=== PATIENT | female | born 1980 ===

== ENCOUNTER 2025-04-14 08:27 | Outpatient (AMB) | payer OTHER, SELFPAY ==
[2025-04-14 08:40] VITALS: BMI 22.8
--- NOTE | 2025-04-14 08:40 | A.PHYSOV_ITS ---
Vital Signs 04/14/25 08:40 Height 4 ft 10 in Weight 109 lb BMI 22.8 Intake Visit Reasons: (TRANSFER PT FROM )-FOLLOW UP AFTER PHYSCIAL THE Intake Note: Patient is a 45 year old female in office today for a second opinion for neck to shoulder pain. Right siden is worse Allergies clarithromycin Allergy (Unknown, Verified 04/14/25 08:39) Unknown tramadol Allergy (Unknown, Verified 04/14/25 08:39) Unknown HPI Comments Details: History of Present Illness The patient is a 45-year-old female presenting with neck pain. The pain is primarily concentrated on the right side and has been persistent for a long time. She denies any injuries and has been taking cyclobenzaprine and meloxicam for management. The patient has previously tried gabapentin, pregabalin, amitriptyline, and duloxetine without significant relief. She received facet joint injections at [facility], which provided short-lived benefit. Physical therapy was attempted but exacerbated her symptoms, leading to cancellation of sessions. A cervical spine MRI conducted on January 28, 2023, was noncontributory. Previous MRI in 2018 showed more detailed findings. The patient reports that the pain radiates to her shoulder, causing weakness in her arm, particularly on the right side. She experiences burning sensations extending to her left elbow. 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 She recently had surgery and has been unable to perform her PHYSICIAN PRACTICE MANAGER duties, yet her symptoms persist. She had previous shoulder x-ray imaging. It was noncontributory. I was able to review images independently. She reports right shoulder pain with overhead activities. Pain has been reported in the left shoulder, however right sided pain is more predominant. Patient also reports persistent pain in her lower back radiating to the left leg. This was not addressed today. Pain Description - Onset: Long-standing neck pain primarily on the right side - Quality: Radiating pain to the shoulder with associated weakness - Location: Right side of the neck and shoulder - Radiation: Pain extends to the shoulder and causes weakness in the arm - Exacerbating factors: Physical therapy and overhead activities - Relieving factors: None of the medications tried provided significant relief Results - Imaging: Cervical spine MRI on January 28, 2023, was noncontributory - Imaging: Previous MRI in 2018 showed more detailed findings, specifics unknown [facility] Medical History (Updated 04/14/25 @ 09:54 by Rafael Siddiqui DO) Cervicobrachial syndrome Neck pain Rotator cuff impingement syndrome of right shoulder Surgical History (Updated 04/14/25 @ 08:42 by Suha Avalos MA) History of ear surgery (Unknown) Social History (Updated 04/13/25 @ 10:16 by Suha Avalos MA) Alcohol intake: current Alcohol intake frequency: does not drink Patient Tobacco Use Status: Never used Tobacco Current occupational status: employed Review of Systems Narrative Review of Systems - Musculoskeletal: Reports chronic neck pain and right shoulder pain with weakness in the right arm - Neurological: Reports burning sensation extending to the left elbow Denies change in bowel bladder habits. Denies fever or chills, denies uncontrolled depression or suicidal ideation Physical Exam Exam Exam: Physical Exam - Musculoskeletal: Tenderness noted in the cervical spine region and right shoulder. Weakness observed in the right arm with difficulty in maintaining resistance during strength testing. Harvey and Neer signs were positive in the right shoulder, negative drop-arm test. Negative shoulder apprehension test. Range of motion was preserved, however painful at the endpoint of abduction. Neurological examination of upper extremities was nonfocal. Mild tenderness with palpation over right-sided cervical facet joints. Cervical range of motion was slightly restricted and side bending. Spurling maneuver was negative. Lhermitte's sign was negative. She was able to perform heel walk and toe walk and ambulate without antalgia. Patient demonstrated no upper motor neuron signs. Vital Signs: BMI result Body Mass Index 22.8 Office Procedures AMB Shoulder Injection AMB Shoulder Injection Procedure Details: After informed consent was obtained, posterior aspect of the right shoulder was prepped with Betadine. 1.5 in 22 gauge hypodermic needle was introduced percutaneously and advanced into the subacromial area. After negative aspiratio n for blood total volume of 6 cc containing 40 mg of triamcinolone and 2% lidocaine was injected without resistance. Patient tolerated procedure very well without complications with excellent anes thetic response. Shoulder Injection - : Right All charges added?: Procedure code (CPT) selection complete Office Meds Kenalog 40 mg/mL suspension for injection Performing Provider: Rafael Siddiqui DO Performing Location: [facility] [place] [facility] Administered by: Rafael Siddiqui DO on 04/14/25 09:08 Dose Route Admin Location Dispensed Lot Number Expiration Date [facility] Rn School 40 mg intra-articular 1 mL [id number] [employer] 2 Total Dispensed Waste 1 mL 0 % lidocaine (PF) 20 mg/mL (2 %) injection solution Performing Provider: Rafael Siddiqui DO Performing Location: [facility] Administered by: Rafael Siddiqui DO on 04/14/25 09:08 Dose Route Admin Location Dispensed Lot Number Expiration Date [facility] Rn School 120 mg intra-articular 6 mL [id number] Total Dispensed Waste 6 mL 0 % Assessment & Plan Assessment & Plan (1) Rotator cuff impingement syndrome of right shoulder: Code(s): M75.41 - Impingement syndrome of right shoulder Category: Medical (2) Neck pain: Code(s): M54.2 - Cervicalgia Category: Medical (3) Cervicobrachial syndrome: Code(s): M53.1 - Cervicobrachial syndrome Category: Medical Plan Pain Management - Affect: Pain impacts daily activities and work performance - Analgesia: Currently using cyclobenzaprine and meloxicam; previous medications included gabapentin, pregabalin, amitriptyline, and duloxetine without significant relief - Adverse Effects: One medication caused hives, but the specific medication is unknown - Activities of Daily Living: Pain interferes with lifting and overhead activities - Aberrant Drug Related Behaviors: None reported Plan Patient was informed and verbally consented to the use of an ambient scribe for clinic note documentation during this visit. 1. Chronic Neck Pain The patient has been experiencing chronic neck pain primarily on the right side, with radiation to the shoulder causing weakness in the arm. Previous interventions included medications such as cyclobenzaprine and meloxicam, as well as facet joint injections, which provided short-lived relief. Physical therapy was attempted but exacerbated symptoms. A cervical spine MRI was noncontributory, and further evaluation of the shoulder is considered. The plan includes considering a shoulder MRI or injection to determine the source of pain and provide relief. 2. Right Shoulder Pain The patient reports right shoulder pain with associated weakness, impacting her ability to perform overhead activities. The shoulder has not been previously lexii ged with MRI, and an injection is planned to assess for relief. If the injection provides temporary relief, an MRI will be considered to further evaluate the shoulder. Discussion Notes We discussed the patient's chronic neck and right shoulder pain, considering the possibility of referred pain between these areas. I explained the options of either proceeding with a shoulder MRI or administering a cortisone injection to assess for relief. The patient opted for the injection to seek immediate relief, understanding that an MRI may follow if the relief is temporary. Risks and benefits of the procedure were discussed with the patient. Potential alternative measures were also discussed. Patient understands that the procedure is completely elective. Potential side effects associated with in jectable medications were discussed. All questions were answered to the patient's satisfaction. Patient Instructions - Undergo the planned cortisone injection for the right shoulder. - Monitor for relief and report any changes in symptoms. - Follow up for further evaluation if the injection provides only temporary relief. Orders: Orders AMB Shoulder Injection Today M75.41 - Impingement syndrome of right shoulder Coding Level of Care Code Est Pt Level 4 (06560) Complex EM visit Add On G2211 Diagnoses Rotator cuff impingement syndrome of right shoulder M75.41 Neck pain M54.2 Cervicobrachial syndrome M53.1 CPT Codes AMB Shoulder Injection - Hip/Bursa Injection - : Right ([id number])
--- OUTSIDE RECORDS SUMMARY | 2025-04-14 15:22 | XMS_ITS | Data Portability ---
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 The left ear has worsened more in comparison to the right ear over the past few years. The pathophysiology of otosclerosis was discussed with the patient, and the stapes brochure discussed in detail. We discussed the available options including the use of amplification as well as surgical options. We discussed laser stapedotomy with vein graft in detail, going over the surgical steps in the brochure. We discussed the 1% risk of partial or complete sensorineural hearing loss as a result of surgery, the 3-4% risk that the hearing will stay the same after surgery, but overall a 95% chance that the patient will experience a significant improvement in the hearing in the operated ear. We discussed the risks of surgery including the risk of bleeding, infection, temporary or permanent taste disturbance, temporary or long-term balance disturbance, tinnitus, or tympanic membrane perforation. We also discussed the need to harvest a small vein graft from the back of the hand to serve as a seal around the base of the prosthesis as it enters the inner ear to reduce the risk of perilymphatic fistula or sensorineural hearing loss. We discussed anesthetic options including a general anesthetic versus a local anesthetic with intravenous sedation. After full discussion, the patient would like to proceed with left sided stapes surgery under general anesthesia. I have provided patient with the contact information for my surgical dressing maker. We will begin the scheduling process and see the patient back at the time of surgery. Patient will not require medical clearance from their primary care provider preoperatively. [email or web address] Not available 01/12/2025 10:18:51 04/03/2025 04/03/2025 45 year old female, s/p left laser stapedotomy with vein graft performed 03/27/[address] Ni, presents for her first postoperative evaluation. Patient seems to be doing well following surgery. Gelfoam is present in the left medial canal. Scammon vein graft site also appears well-healed. She was instructed to begin a 14-day course of ofloxacin drops twice daily into the left ear to dissolve the remaining packing and maintain strict water precautions until follow-up with Dr. Ni in 6-8 weeks. All questions were answered. [email or web address] Not available 04/03/2025 18:11:41 Plan of Treatment Reminders Order Date Submit Date Provider Last Modified By Organization Details Last Modified Time Details Appointments Post Op 2024 09:50A M ROSA NI MD Not available Not available Not available Lab None recorded. Referral None recorded. Procedures None recorded. Surgeries stapedect nael/stape dotomy w/ reestabli shment of ossicular continuit y (SURG) 2024 025 [email or web address] Not available 01/12/2025 13:41:23 Imaging None recorded. Medication Orders ofloxacin 0.3 % ear drops 2024 025 [facility] [address], [address] [place] [address], [id number], 04/03/2025 14:37:44 Patient TargetsNo targets recorded. Patient Instructions Encounter Date Encounter Id Patient Instructions Last Modified By Organization Details Last Modified Time 01/12/2025 [id number] - Contact Phoebe, the surgical dressing maker, to finalize insurance approval and schedule the procedure. - Provide name and date of when calling Phoebe. - Discuss any work-related documentation needs with Phoebe. [email or web address] Not available 01/12/2025 10:17:42 Please note: Par ts of this encounter note have been generated by AI based on audio conversation. Patient consent was required prior to utilizing this technology. Content review was required prior to finalizing the note. [email or web address] Not available 01/12/2025 10:17:43 Reason for Referral None Reported. Results Created Date Observation Date Name Description Value Unit Range Abnormal Flag Note LastModifiedBy Organization Detail LastModifiedTime 01/13/20 25 audio gram No observ ation record ed. BARCODE Not Available 2024 12:04:50 Result Notes None recorded. 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 40749647 Active 2020 Otosclero sis involving oval window, nonoblite rative, bilateral ; Note: Date Diagnosed : 06/24/2020 10:16 AM (H80.03) Not Available [facility] 4 03:15:16 Mixed conductiv e and sensorine ural hearing loss of right ear 56035900336 105 Active 2020 Mixed conductiv e and sensorine ural hearing loss, unilatera l, right ear with restricte d hearing on the contralat eral side; Note: Date Diagnosed : 06/24/2020 9:43 AM (H90.A31) Not Available [facility] 4 03:15:17 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 04319464 Active 2020 ROSA NI MD [address] [place] [address], [facility] [place] [place], [address] , [facility] - [facility] 5 10:14:25 Migraine 93797665 Active 2020 Migraine, unspecifi ed, not intractab le, without status migrainos ; Note: Date Diagnosed : 07/08/2020 1:33 PM (G43.909) Not Available [facility] 4 03:15:17 Spasm 00614911 Active 2020 Other muscle spasm; Note: Date Diagnosed : 07/08/2020 1:33 PM (M62.838) Not Available [facility] 4 03:15:16 Conductiv e hearing loss, bilateral 888885016 Active 2024 T[address] W[address]LM [address] [place] [address],[place] [address], [place], [address] , [facility] - [facility] 5 09:30:28 Impacted cerumen in right ear 07251221033 18717 Active 2024 ROSA NI MD [address] [place] [address],[place] [address], [facility] [place], [address] , [facility] - [facility] 5 10:19:00 Problem Notes None recorded. Procedures Surgical History Date Name Laterality Status Provider Name and Address Organization Details Recorded Time 03/27/20 25 STAPEDECTOMY/STAPED OTOMY W/ REESTABLISHMENT OF OSSICULAR CONTINUITY (SURG) completed Dami Armas [place] [facility] 03/27/2025 15:47:43 01/13/20 25 Comp Audio with Tymps - 21453 & 10580 completed TOMAS WILHELM [address] [facility],[place] [address], [place], [address], [facility] - [facility] 01/12/2025 09:20:32 01/13/20 25 Cerumen removal with microscope right completed ROSA NI MD [address] [place] [address],[place] [address], [place], [address], [facility] - [facility] 01/12/2025 10:04:56 Imaging Results None recorded. Procedure Notes None recorded. Medical Equipment None Reported. Allergies No known drug allergies Medications Name Sig Start Date Stop Date Status Note LastModified by Organization Details LastModified Time cyclobenzapr ine 10 mg tablet TAKE 1 TABLET BY MOUTH THREE TIMES DAILY NEEDED FOR MUSCLE SPASM active Not Available Not Available No t Available prednisone 20 mg tablet TAKE 1 TABLET BY MOUTH TWICE DAILY FOR 5 DAYS active Not Available Not Available No t Available omeprazole 40 mg capsule,caryl yed release TAKE 1 CAPSULE BY MOUTH ONCE DAILY active Not Available Not Available No t Available meloxicam 7.5 mg tablet TAKE 1 TABLET BY MOUTH ONCE DAILY active Not Available Not Available No t Available ofloxacin 0.3 % ear drops Instill 4 drops twice a day by otic route for 14 days. 2024 active Not Available Not Available Not Avai lable triamcinolon e acetonide 55 mcg nasal spray aerosol USE 1 TO 2 SPRAY(S) IN EACH NOSTRIL ONCE DAILY 01/12 completed Not Available Not Available Not Available azelastine 137 mcg (0.1 %) nasal spray USE 1 TO 2 SPRAY(S) IN EACH NOSTRIL TWICE DAILY NEEDED FOR CONGESTI ON/ RUNNY NOSE 01/12 completed Not Available Not Available Not Available hydroxyzine HCl 10 mg tablet TAKE 2 TABLETS BY MOUTH 4 TIMES DAILY NEEDED FOR ANXIETY 01/12 completed Not Available Not Available Not Available cyclobenzapr ine 5 mg tablet TAKE 1 TABLET BY MOUTH THREE TIMES DAILY NEEDED FOR MUSCLE SPASM active Not Available Not Available No t Available tizanidine 2 mg capsule TAKE 1 CAPSULE BY MOUTH THREE TIMES DAILY FOR 7 DAYS active Not Available Not Available No t Available Vitals Date Recorded Body height Body weight Provider Name and Address Organization Details Last Updated DateTime 01/12/2025 147.32 cm 22831.01 g Tianna Mckoy [place] [facility] 01/12/2025 09:16:14 Date Recorded Body height Body mass index (BMI) Body weight Provider Name and Address Organization Details Last Updated DateTime 04/03/2025 147.32 cm 22.2 kg/m2 23183.79 g Roopa Wynne [place] [facility] 04/03/2025 14:31:48 Social History None recorded. Functional Status None recorded. Mental Status None recorded. Family History Nothing Reported Notes:- Father: Severe heari ng loss. - Mother: Hearing loss, refuses to use hearing aids. Medical History Condition Response Migraines Y Arthritis Y Gynecological HistoryNo gynecological history recorded. Obstetrics History GPAL:G 0 P 0 0 0 0 Past Encounters Encounter ID Performer Location Encounter Start Date Encounter Closed Date Diagnosis/Indication Diagnosis SNOMED-CT Code Diagnosis ICD10 Code Diagnosis IMO Codes Diagnosis Note [id number] ROSA NI MD [facility] [address] [address] 01/12/2025 09:04:26 01/12/2025 10:18:24 Conductive hearing loss, bilateral 380042796 H90.0 599529 Right Ear:Border line normal hearing/mi ld CHL with excellent speech discrimina tion.Type A tympanogra m.Left Ear:Border line normal hearing/mi ld CHL with excellent speech discrimina tion.Type A tympanogra m. Nonobliter ative otosclerosis involving oval window 39970019 H80.03 Impacted c erumen in right ear 3960077879 637717 H61.21 [id number] YARI DYE [facility] [address] [address] 04/03/2025 14:22:25 04/03/2025 14:40:17 Conductive hearing loss, bilateral 686087805 H90.0 041583 Nonobliter ative otosclerosis involving oval window 47644311 H80.03 Health Concerns Section Related Observation LastModified by Organization Detai ls LastModified Time None Recorded Concern Status LastModified by Organization Details LastModified Time None Recorded Advance Directives Directive None Recorded Payers Insurance Date Sequence Insurance Name Policy Number Policy Matthew Covered Member ID Matthew Member ID Guarantor Name 04/03/2025 1 [facility] [id number] Martina Long [id number] Martina M Long Notes Date Note Type Note Provider Name and Address Organization Details Recorded Time 01/12/2025 text/html 44-year-old female who I evaluated back in 2020. She had bilateral conductive hearing loss consistent with early otosclerosis. She has history of intermittent pulsatile tinnitus, likely related to the underlying conductive hearing loss. She also has history of migraine and possibly tensor tympani spasm for which I recommended magnesium supplementation. She comes back today for reevaluation of bilateral hearing loss. She reports difficulty hearing in various settings, including Zoom meetings and conversations, where she struggles to differentiate between loud and soft voices. She notes that high-pitched sounds are easier to hear compared to mid and low pitches. She often turns her head during conversations to hear better and finds it challenging to hear when people speak behind her. Her hearing loss has progressed since her last visit in 2020, with her left ear now being worse than her right. She has a family history of hearing loss, with her father experiencing severe hearing loss and her mother refusing to use hearing aids. She also reports sensitivity in her ears, making it uncomfortable to wear devices such as AirPods. Her hearing loss has significantly impacted her daily life, causing frustration and difficulty in communication. ROSA NI MD [address] [place] [address], [phone], [facility] 01/12/2025 10:19:29 04/03/2025 text/html ROS as noted in the HPI 45 year old female, s/p left laser stapedotomy with vein graft performed 03/27/[address] Ni, presents for her first postoperative evaluation. Patient is doing well overall. She did experience mild drainage from the left ear and dizziness the first couple of days following surgery, however these have since subsided. Patient continues to endorse mild pain and itching deep inside the left ear, but has not required analgesics for management. Denies fever and taste disturbance. NOHEMY CASILLAS MD [address] [place] [address], [phone], [facility] - [facility] 04/06/2025 08:23:11 OBGyn Episode No OBEpisode recorded.
--- OUTSIDE RECORDS SUMMARY | 2025-04-14 15:22 | XMS_ITS | Continuity of Care Document ---
Author Organization [place] - [facility], [facility] Address [address] [place] [address] Care Team Providers Care Intern Brand Name Role Phone GERONIMO FRANCISCO Primary Care Provider Assessment Encounter Date Assessment Date Assessment LastModified by Organization Details LastModified Time 04/03/2025 04/03/2025 45 year old female, s/p left laser stapedotomy with vein graft performed 03/27/[address] Ni, presents for her first postoperative evaluation. Patient seems to be doing well following surgery. Gelfoam is present in the left medial canal. [place] vein graft site also appears well-healed. She [...] Referral None recorded. Procedures None recorded. Surgeries None recorded. Imaging None recorded. Medication Orders ofloxacin 0.3 % ear drops 2024 025 [facility], [address] [facility], [place], [address], 04/03/2025 14:37:44 Patient TargetsNo targets recorded. Patient InstructionsNo instructions recorded. Reason for Referral None Reported. Problems Name Problem SNOMED Code Status Onset Date Resolution Date Notes Provider Name and Address Organization Details Recorded Time Tinnitus of vascular origin 329463199 Active 2020 Pulsatile tinnitus, bilateral ; Note: Date Diagnosed : 06/24/2020 10:16 AM (H93.A3) Not Available [facility] 4 03:15:17 Left conductiv e hearing loss 09885958870 07 Active 2020 Conductiv e hearing loss, unilatera l, left ear with restricte d hearing on the contralat eral side; Note: Date Diagnosed : 06/24/2020 9:43 AM (H90.A12) Not Available [facility] 4 03:15:16 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 20938926 Active 2020 Otosclero sis involving oval window, nonoblite rative, bilateral ; Note: Date Diagnosed : 06/24/2020 10:16 AM (H80.03) Not Available [facility] 4 03:15:16 Mixed conductiv e and sensorine ural hearing loss of right ear 11113325562 105 Active 2020 Mixed conductiv e and sensorine ural hearing loss, unilatera l, right ear with restricte d hearing on the contralat eral side; Note: Date Diagnosed : 06/24/2020 9:43 AM (H90.A31) Not Available [facility] 4 03:15:17 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 39014063 Active 2020 ROSA NI MD [address] [place] [address], [place], [address] , [facility] - [facility] 5 10:14:25 Migraine 17918196 Active 2020 Migraine, unspecifi ed, not intractab le, without status migrainos ; Note: Date Diagnosed : 07/08/2020 1:33 PM (G43.909) Not Available [facility] 4 03:15:17 Spasm 15895157 Active 2020 Other muscle spasm; Note: Date Diagnosed : 07/08/2020 1:33 PM (M62.838) Not Available [facility] 4 03:15:16 Conductiv e hearing loss, bilateral 057867789 Active 2024 TOMAS WILHELM [address] [facility] [place] [place] [facility], [place], [address] , [facility] - [facility] 5 09:30:28 Impacted cerumen in right ear 45082853692 29993 Active 2024 ROSA NI MD [address] [facility],[place] [address], [facility] [place], [address] , [facility] 5 10:19:00 Problem Notes None recorded. Procedures Surgical History Date Name Laterality Status Provider Name and Address Organization Details Recorded Time 03/27/20 25 STAPEDECTOMY/STAPED OTOMY W/ REESTABLISHMENT OF OSSICULAR CONTINUITY (SURG) completed Dami Armas [facility] 03/27/2025 15:47:43 01/13/20 25 Comp Audio with Tymps - 97034 & 33086 completed TOMAS WILHELM [address] [facility],[place] [address], [place], [address], [facility] 01/12/2025 09:20:32 01/13/20 25 Cerumen removal with microscope right completed ROSA NI MD [address] [facility],[place] [address], [place], [address], [facility] - [facility] 01/12/2025 10:04:56 Imaging Results None recorded. Procedure [...] Available Vitals Date Recorded Body height Body mass index (BMI) Body weight Provider Name and Address Organization Details Last Updated DateTime 04/03/2025 147.32 cm 22.2 kg/m2 16512.79 g Roopa Wynne [place] - [facility] 04/03/2025 14:31:48 Social History None recorded. Functional [...] ICD10 Code Diagnosis IMO Codes Diagnosis Note [id number] YARI DYE [facility] [address] [place] [address] 04/03/2025 14:22:25 04/03/2025 14:40:17 Conductive hearing loss, bilateral 479584439 H90.0 072632 Nonobliter ative otosclerosis involving oval window 85233894 H80.03 Health Concerns Section Related Observation LastModified by Organization Derrick green LastModified Time None Recorded Concern Status LastModified by Organization Details LastModified Time None Recorded Payers Encounter Date Sequence Insurance Name Policy Number Policy Matthew Covered Member ID Matthew Member ID Guarantor Name 04/03/2025 Sam LAZARO [id number] Martina Long [id number] Martina Long Notes Date Note Type Note Provider Name and Address Organization Details Recorded Time 04/03/2025 text/html ROS as noted in the [...] fever and taste disturbance. NOHEMY CASILLAS MD [address] [place] [address], [address], [facility] - [facility] 04/06/2025 08:23:11 OBGyn Episode No OBEpisode recorded.
--- OUTSIDE RECORDS SUMMARY | 2025-04-14 15:22 | XMS_ITS | Continuity of Care Document ---
Author Organization [place] - [facility], [facility] Address [address] [place] [address] Care Team Providers Care Wine Steward Name Role Phone GERONIMO FRANCISCO Primary Care [...] patient with the contact information for my performance instructor. We will begin the scheduling process and see the patient back at the time of surgery. Patient will not require medical clearance from their primary care provider preoperatively. [email or web address] Not available 01/12/2025 10:18:51 Plan of Treatment Reminders Order Date Submit Date Provider Last Modified By Organization Details Last Modified Time Details Appointments Post Op 2024 09:50A M ROSA NI MD Not available Not available Not available Lab None recorded. Referral None recorded. Procedures None recorded. Surgeries stapedect nael/stape dotomy w/ reestabli shment of ossicular continuit y (SURG) 2024 025 Not available 01/12/2025 13:41:23 Imaging None recorded. Medication Orders None recorded. Patient TargetsNo targets recorded. Patient Instructions Encounter Date Encounter Id Patient Instructions Last Modified By Organization Details Last Modified Time 01/12/2025 [id number] - Contact Phoebe, the performance instructor, to finalize insurance approval and schedule the procedure. - Provide name and date of when calling Phoebe. - Discuss any work-related documentation needs with Phoebe. [email or web address] Not available 01/12/2025 10:17:42 Please note: Par ts of this encounter note have been generated by AI based on audio conversation. Patient consent was required prior to utilizing this technology. Content review was required prior to finalizing the note. 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 22303345 Active 2020 Otosclero sis involving oval window, nonoblite rative, bilateral ; Note: Date Diagnosed : 06/24/2020 10:16 AM (H80.03) Not Available [facility] 4 03:15:16 Mixed conductiv e and sensorine ural hearing loss of right ear 09677149393 105 Active 2020 Mixed conductiv e and sensorine ural hearing loss, unilatera l, right ear with restricte d hearing on the contralat eral side; Note: Date Diagnosed : 06/24/2020 9:43 AM (H90.A31) Not Available [facility] 4 03:15:17 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 38503931 Active 2020 ROSA NI MD [address] [place] [address], [place], [address] , [facility] - [facility] 5 10:14:25 Migraine 36318068 Active 2020 Migraine, unspecifi ed, not intractab le, without status migrainos us; Note: Date Diagnosed : 07/08/2020 1:33 PM (G43.909) Not Available [facility] 4 03:15:17 Spasm 94710714 Active 2020 Other muscle spasm; Note: Date Diagnosed : 07/08/2020 1:33 PM (M62.838) Not Available [facility] 4 03:15:16 Conductiv e hearing loss, bilateral 026660139 Active 2024 TOMAS WILHELM [address] [facility],[place] [address], [place], [address] , [place] - [facility] 09:30:28 Impacted cerumen in right ear 07428434502 96289 Active 2024 ROSA NI MD [address] [facility],[place] [address], [place], [address] , [facility] [place] 10:19:00 Problem Notes None recorded. Procedures Surgical History Date Name Laterality Status Provider Name and Address Organization Details Recorded Time 03/27/20 STAPEDECTOMY/STAPED OTOMY W/ REESTABLISHMENT OF OSSICULAR CONTINUITY (SURG) completed Dami Armas [place] - [facility] [place] 03/27/2025 15:47:43 01/13/20 Comp Audio with Tymps - 78814 & 60917 completed TOMAS WILHELM [address] [facility],[place] [address], [place], [address], [facility] 01/12/2025 09:20:32 01/13/20 Cerumen removal with microscope right completed ROSA NI MD [address] [facility],[place] [address], [place], [address], [facility] 01/12/2025 10:04:56 Imaging Results None recorded. Procedure [...] Details Last Updated DateTime 01/12/2025 147.32 cm 84635.01 g Tianna Mckoy [place] - [facility] 01/12/2025 09:16:14 Social History None recorded. Functional Status None recorded. Mental Status None recorded. Family History Nothing Reported Notes:- Father: Severe heari ng loss. - Mother: Hearing loss, refuses to use hearing aids. Medical History Condition Response Arthritis Y Migraines Y Gynecological HistoryNo gynecological history recorded. Obstetrics History GPAL:G 0 P 0 0 0 0 Past Encounters Encounter ID Performer Location Encounter Start Date Encounter Closed Date Diagnosis/Indication Diagnosis SNOMED-CT Code Diagnosis ICD10 Code Diagnosis IMO Codes Diagnosis Note [id number] ROSA NI MD [facility] [address] [address] 01/12/2025 09:04:26 01/12/2025 10:18:24 Conductive hearing loss, bilateral 494181495 H90.0 456022 Right Ear:Border line normal hearing/mi ld CHL with excellent speech discrimina tion.Type A tympanogra m.Left Ear:Border line normal hearing/mi ld CHL with excellent speech discrimina tion.Type A tympanogra m. Nonobliter ative otosclerosis involving oval window 10252347 H80.03 Impacted c erumen in right ear 7773437271 501521 H61.21 1207769 Health Concerns Section Related Observation LastModified by Organization Detai ls LastModified Time None Recorded Concern Status LastModified by Organization Details LastModified Time None Recorded Payers Encounter Date Sequence Insurance Name Policy Number Policy Matthew Covered Member ID Matthew Member ID Guarantor Name 01/12/2025 1 [employer] [id number] Martina Long [id number] Martina Long Notes Date Note Type [...] and difficulty in communication. ROSA NI MD [address] [place] [address], [address], [facility] - [facility] 01/12/2025 10:19:29 OBGyn Episode No OBEpisode recorded.
== END 2025-04-14 09:09 | disposition home or self-care (01) ==
PROVIDERS: PCP Internal Medicine; Visit Provider Physical Medicine & Rehabilitation
DX: M75.41 Impingement syndrome of right shoulder (principal); M54.2 Cervicalgia; M53.1 Cervicobrachial syndrome
CPT/HCPCS: 20610; 99214

== ENCOUNTER → 2025-04-14 08:27 | Outpatient (BNVA) | payer OTHER, SELFPAY | PROVIDERS: PCP Internal Medicine; Visit Provider Physical Medicine & Rehabilitation | DX: M25.511 Pain in right shoulder (principal); M75.41 Impingement syndrome of right shoulder; M54.2 Cervicalgia; M53.1 Cervicobrachial syndrome; G89.29 Other chronic pain | CPT/HCPCS: 20610; J2003; J3301 ==